=== PATIENT | female | born 1995 | race African-American/Black ===

== ENCOUNTER 2018-09-21 10:21 | Emergency (ER) | payer OTHER ==
--- NOTE | 2018-09-21 10:37 | PDOC ---
History of Present Illness - General Chief Complaint: Diarrhea Stated Complaint: STOMACH PAIN Time Seen by Provider: 09/21/18 10:36 History Source: Patient Exam Limitations: No Limitations - History of Present Illness Initial Comments: 09/21/18 11:06 Blanka Flannery is a 23y previously healthy F presenting with epigastric discomfort. Started 4d ago, midline epigastric region worse at night/lying down. Associated alternating non bloody/mucoid diarrhea and constipation. Took simethicone without relief. Able to tolerate fluids/foods. Denies fever, nausea/ vomiting, SOB, chest pain, urinary changes. Travelled to [place] 2 weeks ago. No sick close contacts. No ABD surgeries. Past History - Past Medical History Allergies/Adverse Reactions: Allergies Allergy/AdvReac Type Severity Reaction Status Date / Time shrimp Allergy Unknown Verified 09/21/18 10:37 Home Medications: Ambulatory Orders Famotidine [Pepcid] 20 mg PO DAILY 14 Days #14 tablet 09/21/18 Review of Systems - Review of Systems Constitutional: No: Chills, Fever HEENTM: No: Eye Pain, Nose Pain, Mouth Pain Respiratory: No: Cough, Shortness of Breath Cardiac (ROS): No: Chest Pain, Lightheadedness, Palpitations, Syncope ABD/GI: Yes: Constipated, Diarrhea, Indigestion. No: Abdominal Distended, Nausea, Rectal Bleeding, Vomiting : No: Burning, Dysuria, Discharge, Flank Pain, Hematuria, Incontinence Musculoskeletal: No: Back Pain, Joint Pain, Muscle Pain, Joint Stiffness Integumentary: No: Bruising, Dryness, Erythema, Flushing Neurological: No: Headache, Paresthesia, Seizure, Tingling, Tremors Psychiatric: No: Anxiety, Depression Endocrine: No: Excessive Sweating, Flushing, Intolerance to Cold, Intolerance to Heat Hematologic/Lymphatic: No: Anemia, Blood Clots, Easy Bleeding *Physical Exam - Physical Exam General Appearance: Yes: Nourished, Appropriately Dressed. No: Apparent Distress HEENT: positive: EOMI, MILES, Normal Voice, Hearing Grossly Normal. negative: Scleral Icterus (R), Scleral Icterus (L), Lesions Respiratory/Chest: positive: Lungs Clear, Normal Breath Sounds. negative: Chest Tender, Respiratory Distress, Crackles, Rales, Rhonchi, Stridor, Wheezing Cardiovascular: positive: Regular Rhythm, Regular Rate, S1, S2. negative: Edema , Murmur Gastrointestinal/Abdominal: positive: Normal Bowel Sounds, Tender (mild epigastric), Flat, Soft, Guarding (epigastric), Rebound (epigastric). negative : Organomegaly, Hernia, Mass Integumentary: positive: Normal Color Neurologic: positive: Fully Oriented, Alert, Normal Mood/Affect, Normal Response. negative: Numbness, Confused, Disoriented Medical Decision Making - Medical Decision Making 09/21/18 11:11 Given Pepcid Negative Blanka Flanenry is a 23y previously healthy F presenting with epigastric discomfort. Discomfort is likely GERD +/- viral gastroenteritis based on symptom exacerbation at night. Not . Diarrhea not bloody ruling out EHEC /shigella/salmonella. Unlikely cardiogenic based on absence of risk factors. Able to tolerate fluids/food. Given pepcid. D/c home with pepcid prescription, instructions to drink fluids, PCP f/u. *DC/Admit/Observation/Transfer Diagnosis at time of Disposition: GERD (gastroesophageal reflux disease) Qualifiers: Esophagitis presence: without esophagitis Qualified Code(s): K21.9 - Gastro- esophageal reflux disease without esophagitis - Discharge Dispostion Disposition: HOME Condition at time of disposition: Good - Prescriptions Prescriptions: Famotidine [Pepcid] 20 mg PO DAILY 14 Days #14 tablet - Referrals Referrals: Edil Centeno MD [Staff Physician] - Austyn Henry [Primary Care Provider] - JAYDON URBINA MD [Staff Physician] - - Patient Instructions Printed Discharge Instructions: DI for Gastroesophageal Reflux Disease (GERD) Additional Instructions: You were seen for stomach discomfort. Your history and exam suggests that you may have acid reflux. Please take the prescribed medication as directed. Drink lots of fluids. Follow up with the referred [facility] (primary care) regarding your visit. Come back to the ED if you have bloody bowel movement, lose consciousness, or unable to eat/drink. - Post Discharge Activity
--- NOTE | 2018-09-21 10:41 | PDOC ---
Attending Attestation - Resident Resident Name: Richard Whiteside - HPI HPI: 09/21/18 11:18 Pt presents to the ED complaining of a 4 day history of epigastric discomfort accompanied by nausea without vomiting. Describes the pain as aching, non radiating and currently 3/10 in severity. - Physicial Exam PE: 09/21/18 13:15 Agree with resident exam. Patient is well appearing and in no acute distress. CV: rrr no m/r/g Pulm: CTA b/l Abdomen is soft, non tender and non distended, without guarding or rebound. - Medical Decision Making 09/21/18 13:16 Pt presents to the ED complaining of intermittent epigastric discomfort without vomiting. Tolerating her normal diet. ABdomen non tender. test is negative. Differential includes gastritis, PUD, less likely biliary colic. Patient prescribed pepcid, and given referral to medical clinic. Advised to return to the ED immediately for worseing pain. She understands that the pain may be caused by PUD and that she may require endoscopy. She will call medical clinic for follow up.
[2018-09-21 10:53] VITALS: BP 120/87; PULSE 80; TEMP 98.9; BMI 29.1
[2018-09-21] MEDS ORDERED: FAMOTIDINE 20 MG TABLET PO ONE (11:09)
[2018-09-21] MEDS ORDERED: FAMOTIDINE 20 MG TABLET ONE (11:13)
== END 2018-09-21 12:09 | disposition home or self-care (01) ==
LOC: FER 10:21
DX: K21.9 Gastro-esophageal reflux disease without esophagitis (principal)
CPT/HCPCS: 81025; 99282-25